=== PATIENT | male | born 1980 | race Caucasian/White ===

== ENCOUNTER 2022-09-29 02:18 | Emergency (ER) | payer SELFPAY ==
[~2022-09-29] VITALS: Ht 175.3 cm; Wt 88.3 kg
[2022-09-29 02:34] VITALS: BP 134/84
[2022-09-29 04:37] LABS: BASOPHILS % 0.3 % (0.0-2.0); EOSINOPHILS % 1.9 % (0.0-5.0); HEMATOCRIT. 43.8 % (42.0-52.0); HEMOGLOBIN. 15.2 g/dL (14.0-18.0); LYMPHOCYTES % 28.2 % (20.0-50.0); MEAN CORPUSCULAR HEMOGLOBIN 29.4 pg (28.0-32.0); MEAN CORPUSCULAR VOLUME 84.5 fL (80.0-94.0); MEAN PLATELET VOLUME 8.8 fl (7.4-10.4); MONOCYTES % 7.3 % (2.0-8.0); NEUTROPHILS % 62.3 % (40.0-76.0); PLATELET 176 x1000/uL (130-400); RED BLOOD CELL COUNT 5.18 mill/uL (4.7-6.1); RED CELL DISTRIBUTION WIDTH 13.2 % (11.6-14.6)
[2022-09-29 05:06] LABS: CHLORIDE 107 mEq/L (98-107)
[2022-09-29 05:18] LABS: CLARITY URINE TURBID (CLEAR); COLOR URINE YELLOW (YELLOW); KETONES URINE NEGATIVE (NEGATIVE); LEUKOCYTE ESTERASE URINE NEGATIVE (NEGATIVE); NITRITE URINE NEGATIVE (NEGATIVE); OCCULT BLOOD URINE NEGATIVE (NEGATIVE); PH URINE 8.5 (4.5-8.0); PROTEIN URINE TRACE (NEGATIVE); UROBILINOGEN URINE 0.2 E.U./dL (0.2-1.0)
[2022-09-29] MEDS ORDERED: DOCU-150 MT (05:28)
[2022-09-29] MEDS ORDERED: POLY119P2 MT (05:28)
== END 2022-09-29 06:23 | disposition home or self-care (01) ==
LOC: ER 02:18
DX: K59.00 Constipation, unspecified (principal); R10.84 Generalized abdominal pain
CPT/HCPCS: 36415; 80053; 81003; 85025; 99283